=== PATIENT | female | born 1960 | race Two or more races ===

== ENCOUNTER 2019-07-16 12:53 | Emergency (ER) | payer MEDICAID, OTHER ==
[~2019-07-16] VITALS: Ht 167.6 cm; Wt 72.6 kg
[2019-07-16 12:58] VITALS: BP 140/86
[2019-07-16] MEDS ORDERED: ACETAMINOPHEN 500 MG TAB PO ONE (13:30)
== END 2019-07-16 14:39 | disposition home or self-care (01) ==
LOC: ER 12:53
DX: S16.1XXA Strain of muscle, fascia and tendon at neck level, initial encounter (principal); G44.209 Tension-type headache, unspecified, not intractable; H60.91 Unspecified otitis externa, right ear; H61.21 Impacted cerumen, right ear; F17.210 Nicotine dependence, cigarettes, uncomplicated; Z88.0 Allergy status to penicillin; Z88.8 Allergy status to other drugs, medicaments and biological substances; X58.XXXA Exposure to other specified factors, initial encounter; Y93.89 Activity, other specified; Y92.89 Other specified places as the place of occurrence of the external cause; Y99.8 Other external cause status
CPT/HCPCS: 70450

== ENCOUNTER 2020-08-10 09:56 | Emergency (ER) | payer MEDICAID ==
[~2020-08-10] VITALS: Ht 167.6 cm; Wt 70.3 kg
[2020-08-10 10:35] LABS: Albumin 3.6 g/dL (3.4-5.0); Anion Gap 5 (5-15); Blood Urea Nitrogen 15 mg/dL (7-18); Calcium 8.6 mg/dL (8.5-10.1); Carbon Dioxide 28 mmol/L (21-32); Chloride 107 mmol/L (98-107); Glucose 91 mg/dL (74-106); Potassium 4.4 mmol/L (3.5-5.1); Sodium 140 mmol/L (136-145)
[2020-08-10 10:41] LABS: Alanine Aminotransferase 19 U/L (13-56); Alkaline Phosphatase 126 U/L (45-117); Aspartate Aminotransferase 11 U/L (15-37); BUN/Creatinine Ratio 19.7; Bilirubin, Total 0.7 mg/dL (0.2-1.0); GFR African American 100 mL/min; GFR Non-African American 83 mL/min; Total Protein 7.7 g/dL (6.4-8.2)
[2020-08-10 10:51] LABS: Urine Bacteria FEW /hpf (None Seen); Urine Blood Negative /uL (Negative); Urine Mucus FEW (None Seen); Urine Specific Gravity 1.021 (1.001-1.035); Urine WBC 1 /hpf (0 - 5)
[2020-08-10] MEDS ORDERED: FUROSEMIDE 40 MG/4 ML VIAL IV ONE (11:15)
[2020-08-10 11:49] LABS: Basophils # (auto) 0 10 ^3/uL (0-0.2); Basophils % (auto) 0.5 % (0.0-2.0); Eosinophils # (auto) 0.2 10 ^3/uL (0-0.8); Eosinophils % (auto) 2.9 % (0.0-7.0); Hematocrit 41.9 % (36.0-46.0); Hemoglobin 13.6 g/dL (12.2-16.2); Lymphocytes % (auto) 28.7 % (10.0-50.0); Mean Corpuscular Hemoglobin 28.5 pg (28.0-32.0); Mean Corpuscular Hgb Conc. 32.5 g/dL (32.0-36.0); Mean Corpuscular Volume 87.5 fL (80.0-100.0); Monocytes # (auto) 0.4 10 ^3/uL (0-1.3); Monocytes % (auto) 5.9 % (0.0-12.0); Neutrophils # (auto) 4.4 10 ^3/uL (1.6-8.6); Nucleated Red Blood Cells % 0.2 %; Platelet Count (auto) 240 10^3/uL (140-450); Red Blood Cells 4.78 10^6/uL (4.0-5.20); Red Cell Distribution Width 17.7 % (11.8-14.3); White Blood Cell 7.1 10^3/uL (4.4-10.8)
[2020-08-10 12:02] VITALS: BP 114/69
== END 2020-08-10 12:46 | disposition home or self-care (01) ==
LOC: ER 09:56
DX: I50.9 Heart failure, unspecified (principal); J40 Bronchitis, not specified as acute or chronic; F17.210 Nicotine dependence, cigarettes, uncomplicated
CPT/HCPCS: 36415; 71045; 80053; 81001; 84484; 85025; 93005; 96374; 99285; J1940

== ENCOUNTER 2024-06-07 12:57 | Emergency (ER) | payer MEDICAID ==
[~2024-06-07] VITALS: Ht 167.6 cm; Wt 77.0 kg
--- NOTE | 2024-06-07 13:13 | ED.PDOC ---
Eye-HPI HPI Comments 63Y F with PMHx CAD and pacemaker presents to ED for chief complaint lt facial swelling/redness [id number]. Pt states swelling initially began at the left ear but then went away. Then, after a few days, the swelling and redness developed on the left periorbital area. 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 Upon ED evaluation, pt did not present with shingles rash, rash on the nose, or black discoloration. No other symptoms or history reported. Time Seen by MD: 13:01 Primary Care Provider: NONE Reviewed Notes: Nurses Notes, Medications, Allergies Allergies: Coded Allergies: Acetaminophen (Verified Allergy, 10/15/12) Hydrocodone (Verified Allergy, 10/15/12) Penicillins (Verified Allergy, 10/15/12) Information Source: Patient, Friend Mode of Arrival: Ambulatory Timing: Weeks Duration: Since onset Quality: Pain, Red Eye Location: Left (periorbital region) Onset: Spontaneous Throat Exposed to: None History of: None Modifying factors: Nothing Associated signs and symptoms: Other Past Medical History PAST MEDICAL HISTORY: CAD Surgical History: Pacemaker [employer] History: No Pertinent [employer] History Family History Family History: Unobtainable Social History Smoker: Cigarettes, Less Than 1 Pack/Day Alcohol: Occasionally Drugs: Marijuana Lives In: Home Constitutional: denies: chills, diaphoresis, fatigue, fever, malaise, sweats, weakness, others EENTM: reports: eye pain (periorbital region), others (periorbital swelling and redness); denies: blurred vision, double vision, ear bleeding, ear discharge, ear drainage, ear pain, ear ringing, eye redness, hearing loss, mouth pain, mouth swelling, nasal discharge, nose bleeding, nose congestion, nose pain, photophobia, tearing, throat pain, throat swelling, voice changes Respiratory: denies: cough, hemoptysis, orthopnea, SOB at rest, shortness of breath, SOB with excertion, stridor, wheezing, others Cardiovascular: denies: chest pain, dizzy spells, diaphoresis, Dyspnea on exertion, edema, irregular heart beat, left arm pain, lightheadedness, palpitations, PND, syncope, others Gastrointestinal: denies: abdomen distended, abdominal pain, blood streaked bowels, constipated, diarrhea, dysphagia, difficulty swallowing, hematemesis, melena, nausea, poor appetite, poor fluid intake, rectal bleeding, rectal pain, vomiting, others Genitourinary: denies: abnormal vagina bleeding, burning, dyspareunia, dysuria, flank pain, frequency, hematuria, incontinence, pain, , vagina discharge, urgency, others Neurological: denies: dizziness, fainting, headache, left sided numbness, left sided weakness, numbness, paresthesia, pre-existing deficit, right sided numbness, right sided weakness, seizure, speech problems, tingling, tremors, weakness, others Musculoskeletal: denies: back pain, gout, joint pain, joint swelling, muscle pain, muscle stiffness, neck pain, others Integumetry: denies: bruises, change in color, change in hair/nails, dryness, laceration, lesions, lumps, rash, wounds, others Allergic/Immunocompromised: denies: Difficulty Healing, Frequent Infections, Hives, Itching, others Hematologic/Lymphatic: denies: anemia, blood clots, easy bleeding, easy bruising, swollen glands, others Endocrine: denies: excessive hunger, excessive sweating, excessive thirst, excessive urination, flushing, intolerance to cold, intolerance to heat, unexplained weight gain, unexplained weight loss, others Psychiatric: denies: anxiety, bipolar disorder, depression, hopeless, panic disorder, schizophrenia, sleepless, suicidal, others All Other Systems: Reviewed and Negative Physical Exam General Appearance: No Apparent Distress, Normal HEENT: Pharynx Normal, TMs Normal, Other (Lt periorbital area: redness, swelling, tender, no shingles rash; no black discoloration, no rash on the tip of the nose) Neck: Full Range of Motion, Non-Tender, Normal, Normal Inspection Respiratory: Chest Non-Tender, Lungs Clear, No Accessory Muscle Use, No Respiratory Distress, Normal Breath Sounds Cardiovascular: No Edema, No JVD, No Murmur, No Gallop, Normal Peripheral Pulses, Regular Rate/Rhythm Breast Exam: Deferred Gastrointestinal: No Organomegaly, Non Tender, No Pulsatile Mass, Normal Bowel Sounds, Soft Genitalia: Deferred Pelvic: Deferred Rectal: Deferred Extremities: No calf tenderness, Normal capillary refill, Normal inspection, Normal range of motion, Non-tender, No pedal edema Musculoskeletal : Apperance: Normal Neurologic: Alert, water plant maintenance mechanic II-XII nml as Tested, No Motor Deficits, Normal Affect, Normal Mood, No Sensory Deficits Cerebellar Function: Normal Reflexes: Normal Skin: Dry, Normal Color, Warm Lymphatic: No Adenopathy Was a procedure done? Was a procedure done?: No EENT DIFF Eye: Conjunctivitis, Allergic, Chlamydial, Glaucoma, Globe Rupture, Orbital Cellulits, Periorbital Cellulits, Retinal Artery Occlusion, Retinal Vein Occlusion, Subconjunctival Hemorrhag, Virtreous Hemorrhage, Other (shingles) Ear: N/A Nose: N/A Mouth: N/A Sore Throat: N/A X-Ray, Labs, Meds, VS Vital Signs Date Time Temp Pulse Resp B/P (MAP) Pulse Ox O2 Delivery O2 Flow Rate FiO2 06/07/24 13:11 98.3 79 16 139/66 (90) 98 Lab Test 06/07/24 13:05 Range/Units White Blood Count 8.6 4.4-10.8 10^3/uL Red Blood Count 5.09 4.0-5.20 10^6/uL Hemoglobin 15.1 12.2-16.2 g/dL Hematocrit 44.7 36.0-46.0 % Mean Corpuscular Volume 87.8 80.0-100.0 fL Mean Corpuscular Hemoglobin 29.7 28.0-32.0 pg Mean Corpuscular Hemoglobin Concent 33.8 32.0-36.0 g/dL Red Cell Distribution Width 14.2 11.8-14.3 % Platelet Count 209 140-450 10^3/uL Mean Platelet Volume 8.4 6.9-10.8 fL Neutrophils (%) (Auto) 57.4 37.0-80.0 % Lymphocytes (%) (Auto) 32.6 10.0-50.0 % Monocytes (%) (Auto) 7.7 0.0-12.0 % Eosinophils (%) (Auto) 2.1 0.0-7.0 % Basophils (%) (Auto) 0.2 0.0-2.0 % Neutrophils # (Auto) 4.9 1.6-8.6 10 ^3/uL Lymphocytes # (Auto) 2.8 0.4-5.4 10 ^3/uL Monocytes # (Auto) 0.7 0-1.3 10 ^3/uL Eosinophils # (Auto) 0.2 0-0.8 10 ^3/uL Basophils # (Auto) 0 0-0.2 10 ^3/uL Nucleated Red Blood Cells 0.0 % Sodium Level 138 136-145 mmol/L Potassium Level 4.1 3.5-5.1 mmol/L Chloride Level 102 98-107 mmol/L Carbon Dioxide Level 28 20-31 mmol/L Anion Gap 8 5-15 Blood Urea Nitrogen 9 9-23 mg/dL Creatinine 0.80 0.550-1.02 mg/dL Glomerular Filtration Rate Calc 83 >90 mL/min BUN/Creatinine Ratio 11.3 10.0-20.0 Serum Glucose 113 H 74-106 mg/dL Calcium Level 10.3 8.7-10.4 mg/dL [place] [id number] Ph: [phone] DIAGNOSTIC IMAGING Diagnostic Imaging Report : [id number] Signed PATIENT: ZAC TORRES ACCT: [id number] UNIT: [id number] : 1960 LOC: ER ROOM / BED: / AGE / SEX: 63 / F ADM STATUS: REG ER SERVICE 1304 ORDERING PHYSICIAN: DAKOTAH SULLIVAN MD PROCEDURE(s): FAC2C - MAXILLOFACIAL WITHOUT REASON: r/o mucormysosis ORDER NUMBER(s): [id number], ACCESSION NUMBER(s): [id number] HISTORY: r/o mucormysosis TECHNIQUE: Nonenhanced axial images through the facial bones with coronal and sagittal MPR. Radiation dose Information: CT Dose: CTDI volume is 66.97 mGy. Dose-length product is 1246.2 mGy*cm COMPARISON: CT scan dated 07/16/2019 FINDINGS: See below IMPRESSION: 1. No acute facial bone fracture 2. Mild right maxillary sinus disease, with mild mucosal thickening and small mucus retention cyst. 7 mm left ethmoid osteoma. The other paranasal sinuses are clear. 3. Subcutaneous edema about the left face, periorbital region, and temporal scalp. In the absence of known trauma, this appearance is suggestive of cellulit is. No evidence of soft tissue abscess. 4. Multiple dental caries. Recommend outpatient dental consultation. 5. Moderate to severe cervical degenerative disc disease and facet arthropathy with multi level significant neural foraminal stenosis and C3-C4 moderate spinal canal stenosis. Recommend follow-up outpatient noncontrast MRI of the cervical spine for better characterization. Radiation optimization: All CT scans at this facility use at least one of these dose optimization techniques: Automated exposure control mA and/or kV adjustment per patient size (includes targeted exams where dose is matched to clinical indication) or iterative reconstruction. ATED BY: TONO HAMMOND MD DICTATED DATE/TIME: 06/07/24 1346 SIGNED BY: TONO HAMMOND MD SIGNED DATE/TIME: 06/07/24 1346 CC: Time of 1ST Reevaluation: 13:31 Reevaluation 1ST: Unchanged Patient Education/Counseling: Diagnosis, Treatment Family Education/Counseling: Diagnosis, Treatment Additional Information I reviewed the following notes from patient's past medical encounters: REPLACED BY [facility] 10/10/2020, 07/16/2019, 03/28/2016, 10/20/2014 The following tests were ordered, and results were reviewed by me: CBC, BMP, CT maxillofacial WO contrast Additional Information was gathered from interviewing the following independent historians: Friend I reviewed and agreed with the following test results read by other providers: CT maxillofacialWO contrast I discussed treatment and results with medical personnel and friend. Departure 1 Departure Time of Disposition: 15:12 Impression: Primary Impression: Facial cellulitis Additional Impression: Dental caries Disposition: ADMITTED INPATIENT Admit to: Med Surg Condition: Stable Critical Care Note Critical Care Time?: Yes (55 min-critical care time only) Critical care comment: Due to a history of a "mold infection," mucormycosis was a serious cons ideration and as a result of the concerns for patients condition deteriorating, the care required my highest level of attention and readiness to intervene. I assessed the patient, reviewed the medical records, ordered the appropriate tests and treatments, then reassessed for results and responsiveness. I communicated with medical personnel and consultants and formulated a plan of care. Total critical care time excludes any procedures Stability Stability form required: No Heart Score Heart Score: Heart Score Response (Comments) Value History N/A 0 EKG N/A 0 Age N/A 0 Risk Factors N/A 0 Troponin N/A 0 Total 0 I personally scribed for DAKOTAH SULLIVAN MD ([facility]) on 06/07/24 at 13:13. Electronically submitted by Macrina Garcia ([facility]). I personally scribed for DAKOTAH SULLIVAN MD ([facility]) on 06/07/24 at 13:54. Electronically submitted by Macrina Garcia ([facility]). DAKOTAH SULLIVAN MD Jun 07, 2024 13:13
[2024-06-07] MEDS ORDERED: cefTRIAXone 1GM/50ML D5W 50 ML IV ONE (13:15)
[2024-06-07 13:32] LABS: Basophils # (auto) 0 10 ^3/uL (0-0.2); Basophils % (auto) 0.2 % (0.0-2.0); Eosinophils # (auto) 0.2 10 ^3/uL (0-0.8); Eosinophils % (auto) 2.1 % (0.0-7.0); Hematocrit 44.7 % (36.0-46.0); Hemoglobin 15.1 g/dL (12.2-16.2); Lymphocytes # (auto) 2.8 10 ^3/uL (0.4-5.4); Lymphocytes % (auto) 32.6 % (10.0-50.0); Mean Corpuscular Hemoglobin 29.7 pg (28.0-32.0); Mean Corpuscular Hgb Conc. 33.8 g/dL (32.0-36.0); Mean Corpuscular Volume 87.8 fL (80.0-100.0); Monocytes # (auto) 0.7 10 ^3/uL (0-1.3); Monocytes % (auto) 7.7 % (0.0-12.0); Neutrophils # (auto) 4.9 10 ^3/uL (1.6-8.6); Neutrophils % (auto) 57.4 % (37.0-80.0); Platelet Count (auto) 209 10^3/uL (140-450); Red Blood Cells 5.09 10^6/uL (4.0-5.20); Red Cell Distribution Width 14.2 % (11.8-14.3); White Blood Cell 8.6 10^3/uL (4.4-10.8)
[2024-06-07 13:45] LABS: Anion Gap 8 (5-15); Carbon Dioxide 28 mmol/L (20-31); Chloride 102 mmol/L (98-107); Potassium 4.1 mmol/L (3.5-5.1); Sodium 138 mmol/L (136-145)
[2024-06-07 13:46] LABS: Calcium 10.3 mg/dL (8.7-10.4)
--- NOTE | 2024-06-07 13:49 | DVH ---
HISTORY: r/o mucormysosis TECHNIQUE: Nonenhanced axial images through the facial bones with coronal and sagittal MPR. Radiation dose Information: CT Dose: CTDI volume is 66.97 mGy. Dose-length product is 1246.2 mGy*cm COMPARISON: CT scan dated 07/16/2019 FINDINGS: See below IMPRESSION: 1. No acute facial bone fracture 2. Mild right maxillary sinus disease, with mild mucosal thickening and small mucus retention cyst. 7 mm left ethmoid osteoma. The other paranasal sinuses are clear. 3. Subcutaneous edema about the left face, periorbital region, and temporal scalp. In the absence of known trauma, this appearance is suggestive of cellulitis. No evidence of soft tissue abscess. 4. Multiple dental caries. Recommend outpatient dental consultation. 5. Moderate to severe cervical degenerative disc disease and facet arthropathy with multi level signi ficant neural foraminal stenosis and C3-C4 moderate spinal canal stenosis. Recommend follow-up outpat ient noncontrast MRI of the cervical spine for better characterization. Radiation optimization: All CT scans at this facility use at least one of these dose optimization volodymyr hniques: Automated exposure control mA and/or kV adjustment per patient size (includes targeted exams where dose is matched to clinical indication) or iterative reconstruction.
[2024-06-07 13:51] LABS: BUN/Creatinine Ratio 11.3 (10.0-20.0)
[2024-06-07 14:12] LABS: Blood Urea Nitrogen 9 mg/dL (9-23); Glucose 113 mg/dL (74-106)
[2024-06-07] MEDS: CLINDAMYCIN 900MG IV 50 ML IV ONE (15:37)
[2024-06-07 15:45] VITALS: PULSE 89; RESP 16; O2SAT 98
[2024-06-07] MEDS: fentaNYL CITRATE 100 MCG/2 ML VL IV ONE (16:18)
[2024-06-07 17:08] VITALS: BP 131/61; PULSE 79; RESP 17; TEMP 97.9; O2SAT 98
[2024-06-07] MEDS ORDERED: SODIUM CHLORIDE 0.9% 1,000 ML IV SCH (19:15)
[2024-06-07] MEDS ORDERED: DOCUSATE SOD 100 MG CAP PO PRN (19:15)
[2024-06-07] MEDS ORDERED: ONDANSETRON HCL 4 MG/2 ML VIAL IV PRN (19:15)
[2024-06-07] MEDS ORDERED: ACETAMINOPHEN 325 MG TAB PO PRN (19:15)
[2024-06-07] MEDS ORDERED: MORPHINE SULFATE INJ 2 MG/ml SYRG IV PRN (20:15)
[2024-06-07] MEDS ORDERED: NITROGLYCERIN 0.4 MG SL TAB SL PRN (20:15)
--- NOTE | 2024-06-07 20:15 | DVHHP2 ---
History of Present Illness Reason for Visit: Facial cellulitis Review of Systems Allergies: Coded Allergies: Codeine (Verified Allergy, Unknown, 06/07/24) Hydrocodone (Verified Allergy, Unknown, 06/07/24) Penicillins (Verified Allergy, Unknown, 06/07/24) Medications Current Medications Medications Dose Ordered Sig/Chandler Route Start Time Stop Time Status Last Admin Dose Admin Clindamycin Phosphate 50 ml @ 50 mls/hr Q8HR IV 06/07/24 22:00 Aspirin 81 mg DAILY PO 06/08/24 10:00 Famotidine 20 mg DAILY IV 06/08/24 10:00 Carvedilol 3.125 mg Q12HR PO 06/07/24 22:00 Sodium Chloride 1,000 ml @ 60 mls/hr [id number] IV 06/07/24 19:15 Ondansetron HCl 4 mg Q4HP PRN IV 06/07/24 19:15 Docusate Sodium 100 mg BIDPRN PRN PO 06/07/24 19:15 Acetaminophen 650 mg Q6HP PRN PO 06/07/24 19:15 Exam Vital Signs Vital Signs Date Time Temp Pulse Resp B/P (MAP) Pulse Ox O2 Delivery O2 Flow Rate FiO2 06/07/24 17:08 97.9 79 17 131/61 (84) 98 97.9 06/07/24 15:45 Room Air* 0 21 Labs/Xrays Labs Test 06/07/24 13:05 Range/Units White Blood Count 8.6 4.4-10.8 10^3/uL Red Blood Count 5.09 4.0-5.20 10^6/uL Hemoglobin 15.1 12.2-16.2 g/dL Hematocrit 44.7 36.0-46.0 % Mean Corpuscular Volume 87.8 80.0-100.0 fL Mean Corpuscular Hemoglobin 29.7 28.0-32.0 pg Mean Corpuscular Hemoglobin Concent 33.8 32.0-36.0 g/dL Red Cell Distribution Width 14.2 11.8-14.3 % Platelet Count 209 140-450 10^3/uL Mean Platelet Volume 8.4 6.9-10.8 fL Neutrophils (%) (Auto) 57.4 37.0-80.0 % Lymphocytes (%) (Auto) 32.6 10.0-50.0 % Monocytes (%) (Auto) 7.7 0.0-12.0 % Eosinophils (%) (Auto) 2.1 0.0-7.0 % Basophils (%) (Auto) 0.2 0.0-2.0 % Neutrophils # (Auto) 4.9 1.6-8.6 10 ^3/uL Lymphocytes # (Auto) 2.8 0.4-5.4 10 ^3/uL Monocytes # (Auto) 0.7 0-1.3 10 ^3/uL Eosinophils # (Auto) 0.2 0-0.8 10 ^3/uL Basophils # (Auto) 0 0-0.2 10 ^3/uL Nucleated Red Blood Cells 0.0 % Sodium Level 138 136-145 mmol/L Potassium Level 4.1 3.5-5.1 mmol/L Chloride Level 102 98-107 mmol/L Carbon Dioxide Level 28 20-31 mmol/L Anion Gap 8 5-15 Blood Urea Nitrogen 9 9-23 mg/dL Creatinine 0.80 0.550-1.02 mg/dL Glomerular Filtration Rate Calc 83 >90 mL/min BUN/Creatinine Ratio 11.3 10.0-20.0 Serum Glucose 113 H 74-106 mg/dL Calcium Level 10.3 8.7-10.4 mg/dL Assessment/Plan My Orders Orders - SAMI FISCHER DNP Procedure Category Date Status Time Clindamycin 600mg Iv PHA 06/07/24 In Process (Cleocin Iv) 22:00 Aspirin Tablet PHA 06/08/24 In Process 10:00 Famotidine Injection PHA 06/08/24 In Process (Pepcid Injection) 10:00 Carvedilol Tablet PHA 06/07/24 In Process (Coreg Tablet) 22:00 Allergies ELVIA 06/07/24 In Process 19:13 Code Status CODE 06/07/24 Transmitted 19:13 Sodium Chloride 0.9% PHA 06/07/24 In Process 19:15 Oxygen Per Hour RT 06/07/24 Transmitted 19:13 Ondansetron Hcl PHA 06/07/24 In Process (Zofran) 19:15 Docusate Sodium PHA 06/07/24 In Process Capsule (Colace 19:15 Complete Blood Count LAB 06/08/24 Verified 04:00 Comprehensive LAB 06/08/24 Verified Metabolic Panel 04:00 Cardiac DIET 06/08/24 Transmitted Diet-2gna,Lofat,Lochol Breakfast Condition: Serious ELVIA 06/07/24 In Process 19:13 Acetaminophen Tablet PHA 06/07/24 In Process (Tylenol Tablet) 19:15 Bedrest With Bathroom ELVIA 06/07/24 In Process Privileg 19:13 Sequential ELVIA 06/07/24 In Process Compression Device SAMI FISCHER DNP Jun 07, 2024 20:15
[2024-06-07] MEDS ORDERED: CARVEDILOL 3.125 MG TAB PO SCH (22:00)
[2024-06-07] MEDS ORDERED: CLINDAMYCIN 600MG IV 50 ML IV SCH (22:00)
[2024-06-08] MEDS ORDERED: FAMOTIDINE (10MG/ML) 2ML VL IV SCH (10:00)
[2024-06-08] MEDS ORDERED: ASPirin 81 mg TAB PO SCH (10:00)
== END 2024-06-07 20:48 | disposition left against medical advice (07) ==
LOC: ER 12:57 → OVERFLOW 20:13 → UNDOADMIN 20:13 → OVERFLOW 20:48 → UNDODISIN 20:48
DX: L03.211 Cellulitis of face (principal); K02.9 Dental caries, unspecified; F17.210 Nicotine dependence, cigarettes, uncomplicated; I25.10 Atherosclerotic heart disease of native coronary artery without angina pectoris; Z88.6 Allergy status to analgesic agent; Z88.5 Allergy status to narcotic agent; Z88.0 Allergy status to penicillin; Z79.899 Other long term (current) drug therapy; Z53.29 Procedure and treatment not carried out because of patient's decision for other reasons
CPT/HCPCS: 36415; 70486; 80048; 85025; 96365; 99285; J3010; J3490; 99291; G0378